=== PATIENT | female | born 1935 | race Caucasian/White ===

== ENCOUNTER 2017-01-16 18:30 | Emergency (ER) | payer MEDICARE ==
[~2017-01-16] VITALS: Ht 157.5 cm; Wt 86.2 kg
[~2017-01-16 18:30] MED LIST: ALBU17AE23; ALPR1T; ALPR1TAB21; ATR20T; CYCL10TA45; FRSM40T; HYDR1TAB PO; HYDROCHLOR; HYDROCODONE 5/500; HYDROXYSUT; KCL10CCR; MNTL10T; MTL2.5T; NF-CYM60C; NF-ESOM40C; NF-LEVTH75; PGLT30T; POTA10TA36; PRD5T; RMP5C; ROPI1TAB; SLMFT1E; TOLTA4; TORS20TA2; TRZ100T
[2017-01-16] MEDS ORDERED: OXYBUTYNIN (18:54)
[2017-01-16] MEDS ORDERED: MED FOR BLADDER (18:54)
[2017-01-16] MEDS ORDERED: MEMA1TAB PO (18:54)
[2017-01-16] MEDS ORDERED: ZOFRAN (18:54)
[2017-01-16] MEDS ORDERED: RT-ALBUTEROL/IPRATROPIUM 3 ML (DUONEB) VIAL INH ONE (19:15)
--- NOTE | 2017-01-16 19:16 | ED Cough/URI ---
General Chief Complaint: Cough/Cold/Flu Symptoms Stated Complaint: PRODUCTIVE COUGH/L EAR PAIN/BILAT EYE DRAINAGE Nursing Triage Note: PT C/O COUGH, HEAD CONGESTION X 2 WEEKS. Source: patient Exam Limitations: no limitations History of Present Illness Time seen by provider: 19:00 Initial Comments 82-year-old female patient presents to the emergency department with complaints of 2 weeks onset cough, chest congestion, head congestion. States now is having green drainage from the bilateral eyes and left ear pain. Timing/Duration: getting worse, other (2 weeks onset) Severity/Quality: productive cough (yellow) Prior Episodes/Possible Cause: no prior episodes Modifying Factors: Worse With Coughing Allergies and Home Medications Allergies Coded Allergies: Acetaminophen (Verified Allergy, Unknown, 10/10/08) Butorphanol (Verified Allergy, Unknown, 10/10/08) Propoxyphene (Verified Allergy, Unknown, 10/10/08) Sulfa (Sulfonamide Antibiotics) (Verified Allergy, Unknown, 10/10/08) Home Medications Albuterol 17 Gm Aerosol, (Reported) Albuterol Sulfate 6.7 Gm Hfa.aer.ad, 2 PUFF IH Q4H PRN for SHORTNESS OF BREATH, #1 Ref 0 Prescribed by: ABEL BARTH on 01/16/172002 Alprazolam 1 Mg Tab.sr.24h, (Reported) Ciprofloxacin HCl 500 Mg Tablet, 500 MG PO BID, #14 Ref 0 Prescribed by: ABEL BARTH on 01/16/172002 Esomeprazole Mag Trihydrate 40 Mg Capsule.dr, (Reported) Furosemide 40 Mg Tab, (Reported) Hydrocodone Bit/Acetaminophen 1 Each Tablet, 1 EACH PO Q4HR PRN, #20 Ref 0 Prescribed by: KLAUDIA VALLEJO DO on 02/14/10 1124 Hydroxychloroquine Sulfate 200 Mg Tab, (Reported) Levothyroxine Sodium 75 Mcg Tab, (Reported) Memantine HCl 1 Each Tab.ds.pk, 1 EACH PO, (Reported) Montelukast Sodium 10 Mg Tab, (Reported) Ofloxacin 5 Ml Drops, 10 DROPS OT DAILY for 7 Days, #1 Ref 0 Prescribed by: ABEL BARTH on 01/16/172002 Potassium Chloride 10 Meq Tab.prt.sr, (Reported) Prednisone 20 Mg Tab, 40 MG PO DAILY, #8 Ref 0 Prescribed by: ABEL BARTH on 01/16/172002 Ramipril 5 Mg Cap, (Reported) Ropinirole Hcl 1 Mg Tablet, (Reported) Salmeterol Xinaf/Fluticasone 1 Diskus Inhp, (Reported) [Med For Bladder] , (Reported) [Oxybutynin] , (Reported) [Zofran] , (Reported) Constitutional: No chills, No fever, malaise EENTM: ear pain, nose congestion, see HPI, throat pain, No ear discharge, No hearing loss Respiratory: cough, No hemoptysis, No orthopnea, phlegm, No short of breath, No stridor, wheezing Cardiovascular: no symptoms reported Gastrointestinal: no symptoms reported Genitourinary: no symptoms reported Skin: no symptoms reported Psychiatric/Neurological: No Symptoms Reported All Other Systems Reviewed Negative Unless Noted: Yes (Negative excepted noted.) Past Ocitqys-Kapclb-Qiaktr Hx Patient Social History Alcohol Use: Denies Use Recreational Drug Use: No Smoking Status: Never a Smoker 2nd Hand Smoke Exposure: Yes Recent Foreign Travel: No Contact w/Someone Who Travel: No Recent Infectious Disease Expo: No Recent Hopitalizations: Yes Immunizations Up To Date Date of Influenza Vaccine: Aug 17, 2016 Surgeries HX Surgeries: Yes (CATHRYN,HYST,NECK SURG.,ROTATOR CUFF,D&C) Respiratory Hx Respiratory Disorders: Yes (OCC.FLUID BUILDUP) Cardiovascular Hx Cardiac Disorders: Yes Cardiac Disorders: Hypertension Reproductive System Hx Reproductive Disorders: No Genitourinary Hx Genitourinary Disorders: No Musculoskeletal Hx Musculoskeletal Disorders: Yes HEENT HX ENT Disorders: No Blood Transfusions Hx Blood Disorders: No Reviewed Nursing Assessment Reviewed/Agree w Nursing PMH: Yes Family Medical History Significant Family History: No Pertinent Family Hx Physical Exam Vital Signs Vital Sign - Last 12Hours 01/16/17 01/16/17 18:44 19:25 Temp 98.2 Pulse 71 Resp 18 B/P (MAP) 138/67 Pulse Ox 94 O2 Delivery Room Air Capillary Refill : Less Than 3 Seconds General Appearance: WD/WN, no apparent distress Eyes: Bilateral Eye EOMI, Bilateral Eye Other (conjunctiva injected bilaterally. No active drainage at the time of exam. Patient reports drainage at home.), Bilateral Eye PERRL HEENT: PERRL/EOMI, TMs normal, pharyngeal erythema, other (left external ear canal is erythematous with mild swelling) Neck: non-tender, full range of motion, supple, normal inspection Respiratory: no respiratory distress, rhonchi (left base), wheezing (left base) , expiration Cardiovascular: regular rate, rhythm, no murmur Gastrointestinal: non tender, soft, No distended Neurologic/Psychiatric: alert, normal mood/affect, oriented x 3 Skin: normal color, warm/dry Progress/Results/Core Measures Results/Orders My Orders Orders - ABEL BARTH PA Chest Pa/Lat (2 View) (01/16/17 19:05) Albuterol/Ipra Inhalation Soln (Duoneb I (01/16/17 19:15) Svn Sm Volume Nebulizer Rt-Rfs (01/16/17 19:05) Rx-Gentamicin Ophth Soln (Rx-Gentamicin (01/16/17 19:52) Levofloxacin Tablet (Levaquin Tablet) (01/16/17 20:00) Medications Given in ED Vital Signs/I&O Vital Sign - Last 12Hours 01/16/17 01/16/17 01/16/17 01/16/17 18:44 18:44 19:25 20:22 Temp 98.2 Pulse 71 75 Resp 18 16 B/P (MAP) 138/67 Pulse Ox 94 94 O2 Delivery Room Air Blood Pressure Mean: 90 Diagnostic Imaging Diagonstic Imaging: Xray Plain Films/CT/US/NM/MRI: chest Comments PA and lateral chest obtained at 7:33 p.m. Heart and mediastinal silhouette are normal in appearance. The lungs are clear. There is no pneumothorax or pleural fluid. IMPRESSION: No acute process in the chest. No change from 10/07/15. Dictated by: Dictated on workstation # [id number] Reviewed: Reviewed by Me (radiology report reviewed by me) Departure Communication Progress Notes Diagnostic findings discussed with the patient. Patient shows improved breath sounds bilaterally following nebulizer treatment. Faint crackles in the lung bases noted bilaterally. Plan for discharge to home. Impression Impression: Primary Impression: Bronchitis Additional Impressions: Conjunctivitis of both eyes Qualified Codes: H10.33 - Unspecified acute conjunctivitis, bilateral Left otitis externa Qualified Codes: H60.392 - Other infective otitis externa, left ear Disposition: 01 HOME, SELF-CARE Condition: Improved Departure-Patient Inst. Decision time for Depature: 19:58 Referrals: MARION SHEA MD (PCP/Family) Primary Care Physician Patient Instructions: Acute Bronchitis, Adult (DC), Conjunctivitis ([place]) ( DC) Add. Discharge Instructions: All discharge instructions reviewed with patient and/or family. Voiced understanding. Medications as instructed. Tylenol Extra Strength over-the- counter as directed for pain. Ibuprofen 800 mg by mouth every 8 hours as needed for pain. Cool humidifier if needed. Continue usual home medications. Follow-up with your primary care physician for recheck as an outpatient. Return to the emergency department for worsened symptoms or any other concerns. Scripts Ofloxacin (Ofloxacin) 5 Ml Drops 10 DROPS OT DAILY for 7 Days, #1 DROPS 0 Refills Prov: ABEL BARTH 01/16/17 Prednisone (Prednisone) 20 Mg Tab 40 MG PO DAILY, #8 TAB 0 Refills Prov: ABEL BARTH 01/16/17 Albuterol Sulfate (Proventil Hfa) 6.7 Gm Hfa.aer.ad 2 PUFF IH Q4H Y for SHORTNESS OF BREATH, #1 EACH 0 Refills Prov: ABEL BARTH 01/16/17 Ciprofloxacin HCl (Ciprofloxacin HCl) 500 Mg Tablet 500 MG PO BID, #14 TAB 0 Refills Prov: ABEL BARTH 01/16/17 ABEL BARTH Jan 16, 2017 19:16
--- NOTE | 2017-01-16 19:29 | Diagnostic Imaging Report ---
INDICATION: Cough x2 weeks PA and lateral chest obtained at 7:33 p.m. Heart and mediastinal silhouette are normal in appearance. The lungs are clear. There is no pneumothorax or pleural fluid. IMPRESSION: No acute process in the chest. No change from 10/07/15. Dictated by: Dictated on workstation # [id number]
[2017-01-16] MEDS ORDERED: RX-GENTAMICIN SULFATE 0.3% OP 5 ML BTL OU STA (19:52)
[2017-01-16] MEDS ORDERED: LEVOFLOXACIN 500 MG TAB (LEVAQUIN) PO ONE (20:00)
[2017-01-16] MEDS ORDERED: OFLO5DRO7 OT (20:03)
[2017-01-16] MEDS ORDERED: PRD20T PO (20:03)
[2017-01-16] MEDS ORDERED: CIPR500T4 PO (20:03)
[2017-01-16] MEDS ORDERED: RT-ALBUINH IH (20:03)
[2017-01-16 20:22] VITALS: BP 124/78
--- OUTSIDE RECORDS SUMMARY | 2017-02-21 05:24 | XMS REPORT | Referral Summary ---
Author Author [facility] Organization [facility] Address Unknown Phone Unavailable Care Team Providers Care Emergency Management Director Name Role Phone Triston Beyer PCP Encounter VC Date(s): 09/19/15 - 09/19/15 [facility] [address], [place] [address] Discharge Disposition: 01-Home or Self Care Attending Physician: Noe Martínez MD Admitting Physician: Noe Martínez MD Vital Signs No data available for this section Problem List Condition Effective Dates Status Health Status Informant Acute Active pain(Confirmed) Asthma(Confirmed) Active patient At risk for activity Active intolerance(Confirme d)1 At risk for Active infection(Confirmed) 2 At risk for unstable Active blood glucose level(Confirmed)3 At risk of pressure Active sore(Confirmed) CHF (congestive Active patient heart failure)(Confirmed) Fibromyalgia(Confirm Active patient ed) GERD Active patient (gastroesophageal reflux disease)(Confirmed) HTN Active patient (hypertension)(Confi rmed) Impaired skin Active integrity(Confirmed) 4 Inflammatory Active polyarthropathy (disorder)(Confirmed ) Morbid Active patient obesity(Confirmed) Self -care Active deficit(Confirmed)5 1Problem added automatically by system based on initiation of At Risk for Activity Intolerance Plan of Care 2Problem added automatically by system based on initiation of At Risk for Infection in Nutrition Plan of Care 3Problem added automatically by system based on initiation of At Risk for Unstable Blood Glucose Plan of Care 4Problem added automatically by system based on initiation of Impaired Skin Integrity Plan of Care 5Problem added automatically by system based on initiation of Self Care Deficit Plan of Care Allergies, Adverse Reactions, Alerts Substance Reaction Severity Status celecoxib rash Active nitroglycerin severe headache and vomiting Active Stadol respir Severe Active sulfamethoxazole rash Active Medications ALPRAZolam 1 mg oral tablet 1 mg, Oral, TID, as needed for anxiety, # 30 tabs, 0 Refill(s) Start Date: 04/25/15 Status: Ordered aspirin 325 mg oral tablet 325 mg 1 tabs, Oral, Daily, # 30 tabs, 0 Refill(s), other reason (Rx) Start Date: 04/25/15 Status: Ordered glucagon recombinant 1 mg injection IntraMuscular, As Indicated, Hypoglycemia/Low Blood Sugar, 0 Refill(s) Start Date: 04/25/15 Status: Ordered levothyroxine 88 mcg (0.088 mg) oral tablet 88 mcg 1 tabs, Oral, Bedtime (once a day), 0 Refill(s) Start Date: 04/25/15 Status: Ordered miconazole 2% topical powder 1 alma, Topical, BID, 0 Refill(s) Start Date: 04/25/15 Status: Ordered MiraLax 17 g 1 packets, Oral, BID, 0 Refill(s) Start Date: 04/25/15 Status: Ordered Namenda XR 28 mg oral capsule, extended release 28 mg 1 caps, Oral, Daily, 0 Refill(s) Start Date: 04/20/15 Status: Ordered NexIUM 40 mg, Oral, Daily, 0 Refill(s) Start Date: 04/20/15 Status: Ordered [place] 10 mg-325 mg oral tablet 1-2 tabs, Oral, q4hr, Pain Moderate (4-6), # 100 tabs, 0 Refill(s) Start Date: 04/25/15 Status: Ordered Onglyza 5 mg, Oral, Daily, 0 Refill(s) Start Date: 04/20/15 Status: Ordered Plaquenil 200 mg, Oral, BID, 0 Refill(s) Start Date: 04/20/15 Status: Ordered ProAir HFA 90 mcg/inh inhalation aerosol 2 puffs, Inhalation, q6hr, as needed for wheezing, 0 Refill(s) Start Date: 04/20/15 Status: Ordered ramipril 5 mg, Oral, Daily, 0 Refill(s) Start Date: 04/20/15 Status: Ordered Senokot S 50 mg-8.6 mg oral tablet 2 tabs, Oral, Bedtime (once a day), 0 Refill(s) Start Date: 04/25/15 Status: Ordered Singulair 10 mg, Oral, qPM, 0 Refill(s) Start Date: 04/20/15 Status: Ordered Symbicort 160 mcg-4.5 mcg/inh inhalation aerosol 2 puffs, Inhalation, BID, Shortness of Breath/Wheezing, 1-2 puffs, 0 Refill(s) Start Date: 04/20/15 Status: Ordered Zoloft 100 mg, Oral, Bedtime (once a day), 0 Refill(s) Start Date: 04/20/15 Status: Ordered Results Hematology Most recent to 1 oldest [Reference Range]: WBC [4.8-10.8 5.6 10*3/uL 10*3/uL] (09/19/15 5:40 PM) RBC [4.00-5.20] 3.83 *LOW* (09/19/15 5:40 PM) Hgb [12.0-16.0 11.1 gm/dL gm/dL] *LOW* (09/19/15 5:40 PM) Hct [37.0-47.0 %] 34.8 % *LOW* (09/19/15 5:40 PM) MCV [82.0-99.0 fL] 90.9 fL (09/19/15 5:40 PM) MCH [27.0-32.0 pg] 29.0 pg (09/19/15 5:40 PM) MCHC [32.0-36.0 31.9 gm/dL gm/dL] *LOW* (09/19/15 5:40 PM) RDW [11.5-14.5 %] 13.9 % (09/19/15 5:40 PM) Platelet [150-400 217 10*3/uL 10*3/uL] (09/19/15 5:40 PM) MPV [9.4-12.4 fL] 10.8 fL (09/19/15 5:40 PM) Immature 0.2 % Granulocytes (09/19/15 5:40 PM) [0.0-1.0 %] Neutrophils [51-75 62 % %] (09/19/15 5:40 PM) Lymphocytes [20-46 21 % %] (09/19/15 5:40 PM) Monocytes [4-11 %] 13 % *HI* (09/19/15 5:40 PM) Eosinophils [0-4 %] 4 % (09/19/15 5:40 PM) Basophils [0-2 %] 1 % (09/19/15 5:40 PM) Neutro Absolute 3.47 10*3 [1.90-7.00 10*3] (09/19/15 5:40 PM) Lymph Absolute 1.18 10*3 [0.80-3.30 10*3] (09/19/15 5:40 PM) [place] Absolute 0.73 10*3 [0.30-1.00 10*3] (09/19/15 5:40 PM) Eos Absolute 0.21 10*3 [0.00-0.50 10*3] (09/19/15 5:40 PM) Baso Absolute 0.03 10*3 [0.00-0.20 10*3] (09/19/15 5:40 PM) Sed Rate [0-23] 65 *HI* (09/19/15 5:40 PM) Chemistry Most recent to 1 oldest [Reference Range]: Calcium Lvl 9.0 mg/dL [8.6-10.0 mg/dL] (09/19/15 5:40 PM) Immunizations No data available for this section Procedures Procedure Date Related Diagnosis Body Site Open Reduction Internal Fixation Ankle 04/22/15 (Right)1 Carpal tunnel release section Cholecystectomy Dilation and curettage Hysterectomy Rotator cuff repair 1auto-populated from documented surgical case Social History Social History Type Response Smoking Status Never smoker Assessment and Plan No data available for this section
--- OUTSIDE RECORDS SUMMARY | 2017-02-21 05:24 | XMS REPORT | Referral Summary ---
Author Organization Unknown Address Unknown Phone Unavailable Care Team Providers Care Strapper Name Role Phone Triston Beyer PCP Encounter VC Date(s): 11/19/14 - 11/19/[address] [phone]- [place] Discharge Disposition: Home or Self Care Attending Physician: Mike Goodman MD Vital Signs No data available for this section Problem List Condition Effective Dates Status Health Status Informant Inflammatory Active polyarthropathy (disorder)(Confirmed ) Allergies, Adverse Reactions, Alerts Substance Reaction Severity Status celecoxib rash Active nitroglycerin severe headache and vomiting Active sulfamethoxazole rash Active Medications No data available for this section Results Chemistry Most recent to 1 oldest [Reference Range]: Creatinine Lvl 0.67 mg/dL [0.44-1.03 mg/dL] (11/19/14 10:57 AM) eGFR [>60] >60 1 (11/19/14 10:57 AM) 1Result Comment: Multiply eGFR results by 1.21 for race. Immunizations No data available for this section Procedures Procedure Date Related Diagnosis Body Site Collection of venous blood by venipuncture 11/19/14 Social History No data available for this section Assessment and Plan No data available for this section
--- OUTSIDE RECORDS SUMMARY | 2017-02-21 05:25 | XMS REPORT | Referral Summary ---
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 Discharge Disposition: 03-[facility] Facility Attending Physician: Noe Martínez MD Admitting Physician: Noe Martínez MD Vital Signs Most recent to 1 oldest [Reference Range]: Temperature Oral 36.7 degC [35.8-37.3 degC] (10/14/15 12:00 PM) Temperature Tympanic 36.3 degC [36.6-38.1 degC] *LOW* (10/07/15 9:21 AM) Temperature Temporal 36.0 degC Artery [36.3-37.8 *LOW* degC] (10/07/15 12:30 PM) Peripheral Pulse 70 bpm Rate [60-100 bpm] (10/12/15 9:53 AM) Heart Rate Monitored 75 bpm [60-100 bpm] (10/14/15 12:00 PM) Respiratory Rate 18 br/min [14-20 br/min] (10/14/15 12:00 PM) Blood Pressure 144/52 mmHg [90-140/60-90 mmHg] *HI* (10/14/15 12:00 PM) Mean Arterial 91 mmHg Pressure, Cuff (10/07/15 12:45 PM) SpO2 91 % (10/14/15 12:00 PM) Problem List Condition Effective Dates Status Health [...] reason (Rx) Start Date: 04/25/15 Status: Ordered Colace 100 mg oral capsule 100 mg 1 caps, Oral, BID, 0 Refill(s) Start Date: 10/14/15 Status: Ordered Heparin Lock Flush 10 units/mL intravenous solution 10 units 1 mL, IV Push, BID, 0 Refill(s) Start Date: 10/14/15 Status: Ordered levothyroxine 88 mcg (0.088 mg) oral tablet 88 mcg 1 tabs, Oral, Bedtime (once a day), 0 Refill(s) Start Date: 04/25/15 Status: Ordered miconazole 2% topical powder 1 alma, Topical, BID, 0 Refill(s) Start Date: 04/25/15 Status: Ordered Milk of Magnesia 2,400 mg 30 mL, Oral, q12hr, Constipation, 0 Refill(s) Start Date: 10/14/15 Status: Ordered Namenda XR 28 mg oral capsule, extended release 28 mg 1 caps, Oral, Daily, 0 Refill(s) Start Date: 04/20/15 Status: Ordered NexIUM 40 mg, Oral, Daily, 0 Refill(s) Start Date: 04/20/15 Status: Ordered Normal Saline Flush 10 mL, IV Push, BID, 0 Refill(s) Start Date: 10/14/15 Status: Ordered Onglyza 5 mg, Oral, Daily, 0 Refill(s) Start Date: 04/20/15 Status: Ordered oxyCODONE-acetaminophen 10 mg-325 mg oral tablet 1-2 tabs, Oral, q4hr, Pain Moderate (4-6), not to exceed 10 tablets/24 hours; give with food to avoid nausea, # 30 tabs, 0 Refill(s) Start Date: 10/14/15 Stop Date: 11/14/15 Status: Ordered ProAir HFA 90 mcg/inh inhalation aerosol 2 puffs, Inhalation, q6hr, as needed for wheezing, 0 Refill(s) Start Date: 04/20/15 Status: Ordered ramipril 5 mg, Oral, Daily, 0 Refill(s) Start Date: 04/20/15 Status: Ordered senna 8.6 mg oral tablet 8.6 mg 1 tabs, Oral, BID, Constipation, 0 Refill(s) Start Date: 10/14/15 Status: Ordered Singulair 10 mg, Oral, qPM, 0 Refill(s) Start Date: 04/20/15 Status: Ordered Symbicort 160 mcg-4.5 mcg/inh inhalation aerosol 2 puffs, Inhalation, BID, Shortness of Breath/Wheezing, 1-2 puffs, 0 Refill(s) Start Date: 04/20/15 Status: Ordered vancomycin 1 g intravenous injection See Instructions, 1.25g IV q12h through 11/18/15, # 1 g, 0 Refill(s), other reason (Rx) Start Date: 10/14/15 Stop Date: 11/18/15 Status: Ordered Xarelto 10 mg oral tablet 10 mg 1 tabs, Oral, Daily, give daily at 9:00 AM for 20 days post hospital discharge for DVT prophylaxis, 0 Refill(s) Start Date: 10/14/15 Status: Ordered Zoloft 100 mg, Oral, Bedtime (once a day), 0 Refill(s) Start Date: 04/20/15 Status: Ordered Results Hematology Most recent to 1 oldest [Reference Range]: WBC [4.8-10.8 4.7 10*3/uL 10*3/uL] *LOW* (10/12/15 7:51 AM) RBC [4.00-5.20] 3.58 *LOW* (10/12/15 7:51 AM) Hgb [12.0-16.0 10.0 gm/dL gm/dL] *LOW* (10/12/15 7:51 AM) Hct [37.0-47.0 %] 31.9 % *LOW* (10/12/15 7:51 AM) MCV [82.0-99.0 fL] 89.1 fL (10/12/15 7:51 AM) MCH [27.0-32.0 pg] 27.9 pg (10/12/15 7:51 AM) MCHC [32.0-36.0 31.3 gm/dL gm/dL] *LOW* (10/12/15 7:51 AM) RDW [11.5-14.5 %] 14.0 % (10/12/15 7:51 AM) Platelet [150-400 232 10*3/uL 10*3/uL] (10/12/15 7:51 AM) MPV [9.4-12.4 fL] 10.3 fL (10/12/15 7:51 AM) Immature 0.2 % Granulocytes (10/10/15 5:35 AM) [0.0-1.0 %] Neutrophils [51-75 57 % %] (10/10/15 5:35 AM) Lymphocytes [20-46 24 % %] (10/10/15 5:35 AM) Monocytes [4-11 %] 13 % *HI* (10/10/15 5:35 AM) Eosinophils [0-4 %] 6 % *HI* (10/10/15 5:35 AM) Basophils [0-2 %] 0 % (10/10/15 5:35 AM) Neutro Absolute 2.75 10*3 [1.90-7.00 10*3] (10/10/15 5:35 AM) Lymph Absolute 1.17 10*3 [0.80-3.30 10*3] (10/10/15 5:35 AM) [place] Absolute 0.62 10*3 [0.30-1.00 10*3] (10/10/15 5:35 AM) Eos Absolute 0.29 10*3 [0.00-0.50 10*3] (10/10/15 5:35 AM) Baso Absolute 0.01 10*3 [0.00-0.20 10*3] (10/10/15 5:35 AM) Nucleated RBC 0.0 /100 WBC Automated [0 /100 (10/10/15 5:35 AM) WBC] Coagulation Most recent to 1 oldest [Reference Range]: INR [0.9-1.2] 1.0 (10/07/15 9:32 AM) Chemistry Most recent to 1 oldest [Reference Range]: Sodium Lvl [136-144 142 mEq/L mEq/L] (10/12/15 7:51 AM) Potassium Lvl 4.0 mEq/L [3.6-5.1 mEq/L] (10/12/15 7:51 AM) Chloride [99-109 104 mEq/L mEq/L] (10/12/15 7:51 AM) CO2 [22-32 mEq/L] 32 mEq/L (10/12/15 7:51 AM) AGAP [3-20] 6 (10/12/15 7:51 AM) BUN [4-20 mg/dL] 8 mg/dL (10/12/15 7:51 AM) Glucose Lvl [70-100 101 mg/dL mg/dL] *HI* (10/12/15 7:51 AM) Creatinine Lvl 0.62 mg/dL [0.44-1.03 mg/dL] (10/12/15 7:51 AM) eGFR [>60] >60 1 (10/12/15 7:51 AM) Calcium Lvl 8.6 mg/dL [8.6-10.0 mg/dL] (10/12/15 7:51 AM) Troponin [<0.06 <0.05 ng/mL ng/mL] (10/13/15 6:43 AM) Blood Glucose, 104 mg/dL Capillary [70-100 *HI* mg/dL] (10/14/15 1:57 PM) 1Result Comment: Multiply eGFR results by 1.21 for race. Therapeutic Drug Monitoring Most recent to 1 oldest [Reference Range]: Vancomycin Tr 9.8 ug/mL 1 [10.0-20.0 ug/mL] *LOW* (10/09/15 3:33 PM) 1Result Comment: Trough vancomycin concentrations of 15-20 mcg/mL are recommended for complicated infections such as bacteremia, osteomyelitis, endocarditis, meningitis, and hospital acquired pneumonia. Urinalysis Most recent to 1 oldest [Reference Range]: UA Color Yellow (10/14/15 9:31 AM) UA Appear Clear (10/14/15 9:31 AM) UA pH [5.0-8.0] 6.0 (10/14/15 9:31 AM) UA Leuk Est Negative [Negative] (10/14/15 9:31 AM) UA Nitrite Negative [Negative] (10/14/15 9:31 AM) UA Protein Negative [Negative] (10/14/15 9:31 AM) UA Glucose Negative [Negative] (10/14/15 9:31 AM) UA Ketones Negative [Negative] (10/14/15 9:31 AM) UA Urobilinogen Negative [<1.0] (10/14/15 9:31 AM) UA Bili [Negative] Negative (10/14/15 9:31 AM) UA Blood [Negative] Negative (10/14/15 9:31 AM) UA Spec Grav 1.005 [1.003-1.030] (10/14/15 9:31 AM) Type Clean Catch (10/14/15 9:31 AM) Microbiology Reports (Most Recent Ten) TEST: Tissue Culture and Smear1 STATUS: Auth (Verified) BODY SITE: SOURCE: Surgical-Tissue COLLECTED DATE/TIME: 10/07/15 11:00 AM Tissue Culture and Smear Staphylococcus, coagulase negative small amount ORGANISM:Staphylococcus coagulase negative TEST: Acid Fast Bacilli Culture and Smear STATUS: Order in Progress BODY SITE: SOURCE: Surgical-Tissue COLLECTED DATE/TIME: 10/07/15 11:00 AM Acid Fast Smear Only No acid fast bacilli seen TEST: Anaerobic Culture2 STATUS: Auth (Verified) BODY SITE: SOURCE: Surgical-Tissue COLLECTED DATE/TIME: 10/07/15 11:00 AM Anaerobic Culture No anaerobes isolated TEST: Fungus Culture & Calcofluor White Stain STATUS: Order in Progress BODY SITE: SOURCE: Surgical-Tissue COLLECTED DATE/TIME: 10/07/15 11:00 AM Fungus Culture Culture in progress TEST: Tissue Culture and Smear3 STATUS: Auth (Verified) BODY SITE: SOURCE: Surgical-Tissue COLLECTED DATE/TIME: 10/07/15 10:45 AM Tissue Culture and Smear Staphylococcus, coagulase negative scant amount ORGANISM:Staphylococcus coagulase negative TEST: Fungus Culture & Calcofluor White Stain STATUS: Order in Progress BODY SITE: SOURCE: Surgical-Tissue COLLECTED DATE/TIME: 10/07/15 10:45 AM Fungus Culture Culture in progress TEST: Anaerobic Culture4 STATUS: Auth (Verified) BODY SITE: SOURCE: Surgical-Tissue COLLECTED DATE/TIME: 10/07/15 10:45 AM Anaerobic Culture No anaerobes isolated TEST: Acid Fast Bacilli Culture and Smear STATUS: Order in Progress BODY SITE: SOURCE: Surgical-Tissue COLLECTED DATE/TIME: 10/07/15 10:45 AM Acid Fast Bacilli Culture and Smear Culture in progress TEST: Wound Culture and Smear STATUS: Auth (Verified) BODY SITE: SOURCE: Surgical-Wound COLLECTED DATE/TIME: 10/07/15 10:30 AM Gram Smear Rare (0-1/OIF) white blood cells Many (10-20/OIF) red blood cells No microorganisms observed TEST: Fungus Culture & Calcofluor White Stain STATUS: Order in Progress BODY SITE: SOURCE: Surgical-Wound COLLECTED DATE/TIME: 10/07/15 10:30 AM Fungus Culture Culture in progress INTERPRETIVE DATA 1Gram stain result called to OR 5 10/07/2015 11:55 2Gram stain result called to OR 5 10/07/2015 11:55 3Result called to VONNIE Espinoza (OR 5) 4Result called to VONNIE Espinoza (OR 5) Immunizations No data available for this section Procedures Procedure Date Related Diagnosis Body Site Insertion of peripherally inserted central 10/09/15 venous catheter (PICC), without subcutaneous port or pump; age 5 years or older.. Removal Hardware Extremity Lower (Right)1 10/07/15 Open Reduction Internal Fixation Ankle 04/22/15 (Right)2 Carpal tunnel release section Cholecystectomy Dilation and curettage Hysterectomy Rotator cuff repair 1auto-populated from documented surgical case 2auto-populated from documented surgical case Social History Social History Type Response Smoking Status Never smoker Assessment and Plan No data available for this section
--- OUTSIDE RECORDS SUMMARY | 2017-02-21 05:25 | XMS REPORT ---
Author Author Brina Jiménez Organization [employer] Address Unknown Phone Unavailable Care Team Providers Care Elevator Repair Mechanic Name Role Phone Brina Jiménez CP Unavailable Allergies, Adverse Reactions, Alerts Substance Reaction Event Type Sulfa rash Drug Allergy Nitroglycerin vomit Drug Allergy Celebrex rash Drug Allergy Problems Problem Type Condition Code Onset Dates Condition Status Assessment Chest pain R07.9 Active Assessment PVC (premature ventricular contraction) I49.3 Active Assessment Type 2 diabetes mellitus without complications E11.9 Active Assessment Essential hypertension I10 Active Assessment Hyperlipidemia, unspecified E78.5 Active Problem Essential hypertension I10 Active Problem Hyperlipidemia, unspecified E78.5 Active Problem Dizziness R42 Active Problem PVC (premature ventricular contraction) I49.3 Active Assessment Dizziness R42 Active Problem Chest pain R07.9 Active Problem Type 2 diabetes mellitus without complications E11.9 Active Medications Medication Code System Code Instructions Start Date End Date Status Dosage Synthroid [facility] [address]-23 75 MCG Orally Once a day 1 tablet on an empty stomach in the morning Onglyza [facility] [address]-47 5 MG Orally Once a day 1 tablet Namenda Titration Pawan [facility] [address]-23 5 (28)-10 (21) MG Orally Once a day 1 tablet ProAir HFA [facility] [address]-61 108 (90 Base) MCG/ACT Inhalation every 4 hrs 2 puffs as needed Potassium Chloride [facility] [address]-99 20 MEQ Orally Once a day/As needed [address] [facility] [address]-12 200 MG Orally Twice a day 1 tablet with food or milk [place] [facility] [address]-51 7.5-325 MG Orally every 6 hrs 1 tablet as needed Aspirin [facility] [address]-36 325 MG Orally Once a day [address] [facility] [address]-23 50 MG Orally Once a day 3 capsule as needed Lasix [facility] [address]-75 40 MG Orally Once a day 1 tablet Oxybutynin Chloride [facility] [address]-73 5 MG Orally Twice a day [address] [facility] [place] [address]-59 1 MG Orally Three times a day 1 tablet as needed Singulair [facility] [address]-69 10 MG Orally Once a day 1 tablet in the evening Pravastatin Sodium [facility] [address]-76 10 MG Orally Once a day [address] [facility] [address]-91 5 MG Orally Once a day 1 capsule Procedures Procedure Coding System Code Date Office Visit, Est Pt., Level 4 CPT-4 02053 May 14, 2016 Vital Signs Date/Time: May 14, 2016 BMI 34.75 Index Weight 190.00 lbs Height 62 in Cardiac Monitoring Heart Rate 73 /min Oximetry 96 % Blood Pressure Diastolic 74 mm Hg Blood Pressure Systolic 128 mm Hg Results No Known Results Summary Purpose [employer] Submission
--- OUTSIDE RECORDS SUMMARY | 2017-02-21 05:25 | XMS REPORT | Referral Summary ---
Author Author [facility] Organization [facility] Address Unknown Phone Unavailable Care Team Providers Care Mixer Helper Name Role Phone Triston Beyer PCP Encounter VC Date(s): 04/20/15 - 04/25/15 [facility] [address] [place] [address] Discharge Diagnosis: Inflammatory polyarthropathy Discharge Diagnosis: Morbid obesity Discharge Diagnosis: Asthma Discharge Diagnosis: Fibromyalgia Discharge Diagnosis: GERD (gastroesophageal reflux disease) Final: CLOSED FRACTURE OF SHAFT OF FIBULA WITH TIBIA Final: Body Mass Index 40.0-44.9, Adult Final: CONGESTIVE HEART FAILURE, UNSPECIFIED Final: PERSONAL HISTORY OF NONCOMPLIANCE WITH MEDICAL TREATMENT, PRESENTING HAZARDS TO HEALTH Final: Diabetes mellitus without mention of complication, type II or unspecified type, not stated as uncontrolled Final: UNSPECIFIED ESSENTIAL HYPERTENSION Final: Myalgia and myositis, unspecified Final: Other chronic pain Final: ESOPHAGEAL REFLUX Final: MORBID OBESITY Final: Unspecified episodic mood disorder Final: RHEUMATOID ARTHRITIS Final: Panic disorder without agoraphobia Final: Asthma, unspecified Final: CONTUSION OF FACE, SCALP, AND NECK EXCEPT EYE(S) Discharge Disposition: -[facility] Attending Physician: Triston Beyer MD Admitting Physician: Idalmis Resendez MD Vital Signs Most recent to 1 oldest [Reference Range]: Temperature Oral 37.0 degC [35.8-37.3 degC] (04/25/15 12:00 PM) Temperature Skin 36.5 degC [36-37 degC] (04/22/15 10:45 AM) Peripheral Pulse 70 bpm Rate [60-100 bpm] (04/25/15 12:00 PM) Heart Rate Monitored 70 bpm [60-100 bpm] (04/25/15 8:28 AM) Respiratory Rate 16 br/min [14-20 br/min] (04/25/15 12:00 PM) Blood Pressure 129/70 mmHg [90-140/60-90 mmHg] (04/25/15 12:00 PM) Mean Arterial 105 mmHg Pressure, Cuff (04/22/15 11:00 AM) SpO2 95 % (04/25/15 12:00 PM) Problem List Condition Effective Dates [...] to 1 oldest [Reference Range]: WBC [4.8-10.8 6.6 10*3/uL 10*3/uL] (04/25/15 6:19 AM) RBC [4.00-5.20 3.87 10*6/uL 10*6/uL] *LOW* (04/25/15 6:19 AM) Hgb [12.0-16.0 10.8 gm/dL gm/dL] *LOW* (04/25/15 6:19 AM) Hct [37.0-47.0 %] 34.8 % *LOW* (04/25/15 6:19 AM) MCV [82.0-99.0 fL] 89.9 fL (04/25/15 6:19 AM) MCH [27.0-32.0 pg] 27.9 pg (04/25/15 6:19 AM) MCHC [32.0-36.0 31.0 gm/dL gm/dL] *LOW* (04/25/15 6:19 AM) RDW [11.5-14.5 %] 14.4 % (04/25/15 6:19 AM) Platelet [150-400 177 10*3/uL 10*3/uL] (04/25/15 6:19 AM) MPV [9.4-12.4 fL] 10.4 fL (04/25/15 6:19 AM) Immature 0.2 % Granulocytes (04/25/15 6:19 AM) [0.0-1.0 %] Neutrophils [51-75 69 % %] (04/25/15 6:19 AM) Lymphocytes [20-46 15 % %] *LOW* (04/25/15 6:19 AM) Monocytes [4-11 %] 11 % (04/25/15 6:19 AM) Eosinophils [0-4 %] 4 % (04/25/15 6:19 AM) Basophils [0-2 %] 0 % (04/25/15 6:19 AM) Neutro Absolute 4.51 10*3 [1.90-7.00 10*3] (04/25/15 6:19 AM) Lymph Absolute 1.01 10*3 [0.80-3.30 10*3] (04/25/15 6:19 AM) [place] Absolute 0.72 10*3 [0.30-1.00 10*3] (04/25/15:19 AM) Eos Absolute 0.29 10*3 [0.00-0.50 10*3] (04/25/15 6:19 AM) Baso Absolute 0.01 10*3 [0.00-0.20 10*3] (04/25/15:19 AM) Nucleated RBC 0.0 /100 WBC Automated [0 /100 (04/25/15:19 AM) WBC] Coagulation Most recent to 1 oldest [Reference Range]: INR [0.9-1.2] 0.9 (04/20/15 7:27 PM) PTT [25.0-35.0] 23.0 *LOW* (04/20/15 7:27 PM) Chemistry Most recent to 1 oldest [Reference Range]: Sodium Lvl [136-144 136 mEq/L mEq/L] (04/25/15:19 AM) Potassium Lvl 4.3 mEq/L [3.6-5.1 mEq/L] (04/25/15 6:19 AM) Chloride [99-109 98 mEq/L mEq/L] *LOW* (04/25/15: AM) CO2 [22-32 mEq/L] 31 mEq/L (04/25/15 6:19 AM) AGAP [3-20] 7 (04/25/15 6:19 AM) BUN [4-20 mg/dL] 18 mg/dL (04/25/15 6:19 AM) Glucose Lvl [70-100 140 mg/dL mg/dL] *HI* (04/25/15 6:19 AM) Creatinine Lvl 0.58 mg/dL [0.44-1.03 mg/dL] (04/25/15 6:19 AM) eGFR [>60] >60 1 (04/25/15 6:19 AM) Calcium Lvl 9.1 mg/dL [8.6-10.0 mg/dL] (04/25/15 6:19 AM) Albumin Lvl [3.5-4.8 3.6 gm/dL gm/dL] (04/20/15 7:27 PM) Total Protein 6.3 gm/dL [6.1-7.9 gm/dL] (04/20/15 7:27 PM) Globulin [1.9-4.3 2.7 gm/dL gm/dL] (04/20/15 7:27 PM) ALT [14-54 U/L] 13 U/L *LOW* (04/20/15 7:27 PM) AST [15-41 U/L] 24 U/L (04/20/15 7:27 PM) Alk Phos [26-104 87 U/L U/L] (04/20/15 7:27 PM) Bili Total [0.2-1.2 0.6 mg/dL 2 mg/dL] (04/20/15 7:27 PM) Magnesium Lvl 2.3 mg/dL [1.8-2.5 mg/dL] (04/20/15 7:27 PM) Troponin [<0.06 <0.05 ng/mL ng/mL] (04/20/15 7:27 PM) Blood Glucose, 129 mg/dL Capillary [70-100 *HI* mg/dL] (04/25/15 11:37 AM) 1Result Comment: Multiply eGFR results by 1.21 for race. 2Result Comment: Naproxen, specifically the metabolite O-desmethylnaproxen, may cause spurious elevation in Total Bilirubin levels. Immunizations No data available for this section Procedures Procedure Date Related Diagnosis Body Site Removal Hardware Extremity Lower (Right)1 10/07/15 Open Reduction Internal Fixation Ankle 04/22/15 (Right)2 Carpal tunnel release section Cholecystectomy Dilation and curettage Hysterectomy Rotator cuff repair 1auto-populated from documented surgical case 2auto-populated from documented surgical case Social History Social History Type Response Smoking Status Never smoker Assessment and Plan No data available for this section
--- OUTSIDE RECORDS SUMMARY | 2017-02-21 05:25 | XMS REPORT | Referral Summary ---
Author Author [facility] Organization [facility] Address Unknown Phone Unavailable Care Team Providers Care Impregnating Tank Operator Name Role Phone Triston Beyer PCP Encounter VC Date(s): 09/06/15 - 09/06/15 [facility] [address] [place] [address], [place] [address] Discharge Disposition: 01-Home or Self Care Attending Physician: Triston Beyer MD Vital Signs No data available for [...] 0 Refill(s) Start Date: 04/20/15 Status: Ordered Coello 10 mg-325 mg oral tablet 1-2 tabs, [...] Refill(s) Start Date: 04/20/15 Status: Ordered Results No data available for this section Immunizations No data available for this section [...]
--- OUTSIDE RECORDS SUMMARY | 2017-02-21 05:25 | XMS REPORT | Referral Summary ---
Author Author [facility] Organization [facility] Address Unknown Phone Unavailable Care Team Providers Care Launderer Hand Name Role Phone Triston Beyer PCP Encounter VC Date(s): 12/01/16 - 12/01/16 [facility] [address], [place] [address] Discharge Disposition: 01-Home or Self Care Attending Physician: Waldemar Frost MD Vital Signs Most recent to 1 oldest [Reference Range]: Temperature Temporal 36.4 degC Artery [36.3-37.8 (12/01/16 9:00 AM) degC] Peripheral Pulse 61 bpm Rate [60-100 bpm] (12/01/16 6:30 AM) Heart Rate Monitored 61 bpm [60-100 bpm] (12/01/16 9:00 AM) Respiratory Rate 18 br/min [14-20 br/min] (12/01/16 9:00 AM) Blood Pressure 131/58 mmHg [90-140/60-90 mmHg] (12/01/16 9:00 AM) Mean Arterial 97 mmHg Pressure, Cuff (12/01/16 9:00 AM) SpO2 98 % (12/01/16 9:00 AM) Remote Telemetry Ongoing (12/01/16 8:40 AM) Problem List Condition Effective Dates Status Health [...] 0 Refill(s) Start Date: 10/14/15 Status: Ordered Lasix 40 mg oral tablet 40 mg 1 tabs, Oral, Daily, 0 Refill(s) Start Date: 12/01/16 Status: Ordered levothyroxine 88 mcg (0.088 mg) oral tablet 88 mcg 1 tabs, Oral, Bedtime (once a day), 0 Refill(s) Start Date: 04/25/15 Status: Ordered Namenda XR 28 mg oral capsule, extended release 28 mg 1 caps, Oral, Daily, 0 Refill(s) Start Date: 04/20/15 Status: Ordered [place] 7.5 mg-325 mg oral tablet 1 tabs, Oral, q4hr, as needed for pain, 0 Refill(s) Start Date: 12/01/16 Status: Ordered oxybutynin 5 mg oral tablet 5 mg 1 tabs, Oral, Daily, 0 Refill(s) Start Date: 12/01/16 Status: Ordered Plaquenil 200 mg, Oral, Daily, 0 Refill(s) Start Date: 12/01/16 Status: Ordered ProAir HFA 90 mcg/inh inhalation aerosol 2 puffs, Inhalation, q6hr, as needed for wheezing, 0 Refill(s) Start Date: 04/20/15 Status: Ordered ramipril 5 mg, Oral, Daily, 0 Refill(s) Start Date: 04/20/15 Status: Ordered Requip 3 mg oral tablet 3 mg 1 tabs, Oral, Daily, 0 Refill(s) Start Date: 12/01/16 Status: Ordered Symbicort 160 mcg-4.5 mcg/inh inhalation aerosol 2 puffs, Inhalation, BID, Shortness of Breath/Wheezing, 1-2 puffs, 0 Refill(s) Start Date: 04/20/15 Status: Ordered Zoloft 100 mg, Oral, Bedtime (once a day), 0 Refill(s) Start Date: 04/20/15 Status: Ordered Results Hematology Most recent to 1 oldest [Reference Range]: WBC [4.8-10.8 5.9 10*3/uL 10*3/uL] (12/01/16 6:22 AM) RBC [4.00-5.20] 4.25 (12/01/16 6:22 AM) Hgb [12.0-16.0 12.0 gm/dL gm/dL] (12/01/16 6:22 AM) Hct [37.0-47.0 %] 37.8 % (12/01/16 6:22 AM) MCV [82.0-99.0 fL] 88.9 fL (12/01/16 6:22 AM) MCH [27.0-32.0 pg] 28.2 pg (12/01/16 6:22 AM) MCHC [32.0-36.0 31.7 gm/dL gm/dL] *LOW* (12/01/16 6:22 AM) RDW [11.5-14.5 %] 14.4 % (12/01/16 6:22 AM) Platelet [150-400 179 10*3/uL 10*3/uL] (12/01/16 6:22 AM) MPV [9.4-12.4 fL] 10.8 fL (12/01/16 6:22 AM) Chemistry Most recent to 1 oldest [Reference Range]: Sodium Lvl [136-144 143 mEq/L mEq/L] (12/01/16 6:22 AM) Potassium Lvl 3.9 mEq/L [3.6-5.1 mEq/L] (12/01/16 6:22 AM) Chloride [99-109 107 mEq/L mEq/L] (12/01/16 6:22 AM) CO2 [22-32 mEq/L] 29 mEq/L (12/01/16 6:22 AM) AGAP [3-20] 7 (12/01/16 6:22 AM) BUN [4-20 mg/dL] 18 mg/dL (12/01/16 6:22 AM) Glucose Lvl [70-100 101 mg/dL mg/dL] *HI* (12/01/16 6:22 AM) Creatinine Lvl 0.79 mg/dL [0.44-1.03 mg/dL] (12/01/16 6:22 AM) eGFR [>60] >60 1 (12/01/16 6:22 AM) Calcium Lvl 9.2 mg/dL [8.6-10.0 mg/dL] (12/01/16 6:22 AM) Blood Glucose, 94 mg/dL Capillary [70-100 (12/01/16 6:25 AM) mg/dL] 1Result Comment: Multiply eGFR results by 1.21 for race. Immunizations No data available for this section Procedures Procedure Date Related Diagnosis Body Site Esophagogastroduodenoscopy Balloon 12/01/16 Dilatation1 Procedure with Anesthesia2 12/01/16 Removal Hardware Extremity Lower (Right)3 10/07/15 Open Reduction Internal Fixation Ankle 04/22/15 (Right)4 Carpal tunnel release section Cholecystectomy Dilation and curettage Hysterectomy Rotator cuff repair 1auto-populated from documented surgical case 2auto-populated from documented surgical case 3auto-populated from documented surgical case 4auto-populated from documented surgical case Social History Social History Type Response Smoking Status Never smoker Assessment and Plan No data available for this section
--- OUTSIDE RECORDS SUMMARY | 2017-02-21 05:26 | XMS REPORT | Referral Summary ---
Author Author [facility] Organization [facility] Address Unknown Phone Unavailable Care Team Providers Care Slubber Hand Name Role Phone Triston Beyer PCP Encounter VC Date(s): 07/22/15 - 07/22/15 [facility] [address] [place] [address]- Discharge Diagnosis: Cellulitis of leg, right Final: Cellulitis of right lower limb Final: Pain in right leg Discharge Disposition: 01-Home or Self Care Attending Physician: Rayo Tenorio MD Admitting Physician: Rayo Tenorio MD Vital Signs Most recent to 1 oldest [Reference Range]: Temperature Oral 36.9 degC [35.8-37.3 degC] (07/22/15 2:22 AM) Peripheral Pulse 64 bpm Rate [60-100 bpm] (07/22/15 2:22 AM) Respiratory Rate 20 br/min [14-20 br/min] (07/22/15 2:22 AM) Systolic Blood 140 mmHg Pressure [90-140 (07/22/15 2:22 AM) mmHg] Diastolic Blood 69 mmHg Pressure [60-90 (07/22/15 2:22 AM) mmHg] SpO2 99 % (07/22/15 2:22 AM) Problem List Condition Effective Dates Status [...] 0 Refill(s) Start Date: 04/20/15 Status: Ordered Xarelto 10 mg oral tablet [...]
--- OUTSIDE RECORDS SUMMARY | 2017-02-21 05:26 | XMS REPORT | Continuity of Care Document ---
Author Author [facility] Organization [facility] Address Unknown Phone Unavailable Allergies Active Description Code Type Severity Reaction Onset Reported/Identified Relationship to Patient Clinical Status Yes acetaminophen acetaminophen Drug Allergy Unknown RASH 06/07/2012 Yes butorphanol tartrate butorphanol tartrate Drug Allergy Unknown STOPPED BREATHING 06/07/2012 Yes metolazone metolazone Drug Allergy Unknown DIABETES 06/07/2012 Yes nitroglycerin nitroglycerin Drug Allergy Unknown HEADACHE, VOMITING 06/07/2012 Yes propoxyphene napsylate propoxyphene napsylate Drug Allergy Unknown RASH 06/07/2012 Yes Sulfa (Sulfonamide Antibiotics) Sulfa (Sulfonamide Antibiotics) Drug Allergy Unknown RASH Yes No Allergy Information Drug Allergy 09/06/2012 Yes No Allergy Information Drug Allergy N/A N/A 09/06/2012 Yes No Known Drug Allergies Drug Allergy N/A N/A 11/04/2013 Medications Medication Packaging Start Date Stop Date Route Dosage Sig Colace 100 mg capsule Capsule 11/18/2015 100 mg take 1 (one) Capsule by Oral route two times per day azelastine 0.05 % eye drops Unspecified 11/18/2015 0.05 % 1 ( one) daily minocycline 100 mg tablet Tablet 11/18/2015 05/18/2016 100 mg take 1 (one) Tablet by Oral route two times per day for 30 days Benadryl 25 mg capsule Capsule 11/18/2015 25 mg take 1 (one) Capsule by Oral route daily as needed Namenda XR 28 mg capsule sprinkle,extended release Capsule 11/18/2015 28 mg take 1 (one) by Oral route daily levothyroxine 88 mcg tablet Tablet 11/18/2015 88 mcg 1 (one) by Oral route daily senna 8.6 mg tablet Tablet 11/18/2015 8.6 mg take 1 (one) Tablet by Oral route two times per day oxyCODONE-acetaminophen 10 mg-325 mg tablet Tablet 11/18/2015 10-325 mg take 1 (one) Tablet by Oral route every 4 to 6 hours as needed Symbicort 160 mcg-4.5 mcg/actuation HFA aerosol inhaler Inhalation 11/18/2015 160-4.5 mcg/actuation 1 (one) daily hydrALAZINE 25 mg tablet 11/18/2015 11/18/2015 25 mg take 1 ( one) Tablet by Oral route daily Zofran 4 mg tablet 11/18/2015 11/18/2015 4 mg take 1 (one) Tablet by Oral route daily aspirin 325 mg tablet 11/18/2015 11/18/2015 325 mg take 1 ( one) Tablet by Oral route daily omeprazole 40 mg capsule,delayed release Capsule 11/18/2015 40 mg take 1 (one) by Oral route with meals lisinopril 5 mg tablet Tablet 11/18/2015 5 mg take 1 (one) Tablet by Oral route daily montelukast 10 mg tablet Tablet 11/18/2015 10 mg take 1 (one ) Tablet by Oral route every evening Zoloft 100 mg tablet 11/18/2015 11/18/2015 100 mg take 1 (one ) Tablet by Oral route daily Xanax 1 mg tablet 11/18/2015 11/18/2015 1 mg take 1 (one) Tablet by Oral route daily Onglyza 5 mg tablet Tablet 11/18/2015 5 mg take 1 (one) Tablet by Oral route daily oxybutynin chloride 5 mg tablet 05/18/2016 05/18/2016 5 mg take 1 (one) Tablet by Oral route daily Problems Date Dx Coded Attending Type Code Diagnosis Diagnosed By 09/14/2012 Final 719.42 JOINT PAIN-UPPER ARM 11/12/2012 Noe Santoyo MD Final 250.00 DM2/NOS UNCOMP NSU 11/12/2012 Noe Santoyo MD Final 292.0 DRUG WITHDRAWAL 11/12/2012 Noe Santoyo MD Final 304.60 DRUG DEP NEC-UNSPEC 11/12/2012 Noe Santoyo MD Final 401.9 HYPERTENSION NOS 11/12/2012 Noe Santoyo MD Final 729.1 MYALGIA MYOSITIS NOS 11/12/2012 Noe Santoyo MD 784.0 HEADACHE 11/12/2012 Noe Santoyo MD Admitting 796.2 ELEVATE BP W/O HTN 11/18/2012 Triston Beyer MD Final 298.9 PSYCHOSIS NOS 11/18/2012 Tritson Beyer MD Final 401.9 HYPERTENSION NOS 11/18/2012 Triston Beyer MD Final 785.9 CV SYSTEM SYMPTOMS NEC 11/18/2012 Triston Beyer MD Admitting 298.9 PSYCHOSIS NOS 11/18/2012 Triston Beyer MD Admitting 401.9 HYPERTENSION NOS 11/18/2012 Triston Beyer MD Admitting 785.9 CV SYSTEM SYMPTOMS NEC 04/06/2013 Zulay Ferris MD Final 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 04/06/2013 Zulay Ferris MD Final 793.0 NONSP FIND-SKULL HEAD 04/06/2013 Zulay Ferris MD Admitting 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 07/18/2013 Other Doctor, [facility] Final 799.9 UNKN CAUSE MORB/MORT NEC 07/18/2013 Ren Still MD Final 250.00 DM2/NOS UNCOMP NSU 07/18/2013 Ren Still MD Final 401.9 HYPERTENSION NOS 07/18/2013 Ren Still MD 784.0 HEADACHE 07/18/2013 Ren Still MD Final 786.50 CHEST PAIN NOS 07/18/2013 Ren Still MD Final 802.0 CLOSED NASAL BONE FX 07/18/2013 Ren Still MD Final 882.0 OPEN WOUND HAND 07/18/2013 Ren Still MD Admitting 959.09 FACE NECK INJURY 07/18/2013 Ren Still MD Final 959.11 CHEST WALL INJURY NEC 07/18/2013 Ren Still MD External E849.0 HOME ACCIDENTS 07/18/2013 Ren Still MD External E885.9 FALL FROM TRIPPING NEC 11/04/2013 Cole Armendariz MD Final 250.00 DM2/NOS UNCOMP NSU 11/04/2013 Cole Armendariz MD Final 401.9 HYPERTENSION NOS 11/04/2013 Cole Armendariz MD Final 465.9 ACUTE URI NOS 11/04/2013 Cole Armendariz MD Admitting 786.2 COUGH 11/08/2013 Triston Beyer MD Final 416.8 CHR PULMON HEART DIS NEC 11/08/2013 Triston Beyer MD Final 799.02 HYPOXEMIA 12/22/2013 Triston Beyer MD Final 416.8 CHR PULMON HEART DIS NEC 12/22/2013 Triston Beyer MD Final 716.97 ARTHROPATHY NOS-ANKLE 12/22/2013 Triston Beyer MD Final 726.73 CALCANEAL SPUR 12/22/2013 Triston Beyer MD Final 727.9 SYNOV/TEND/BURSA DIS NOS 12/22/2013 Triston Beyer MD 729.5 PAIN IN LIMB 12/22/2013 Triston Beyer MD Final 733.90 DISORDER BONE CART NOS 12/22/2013 Triston Beyer MD 799.02 HYPOXEMIA 03/09/2014 Final 716.97 ARTHROPATHY NOS-ANKLE 03/09/2014 Admitting 729.5 PAIN IN LIMB 03/09/2014 Final 825.25 CLSD FX METATARSAL BONE 03/09/2014 External E001.1 ACTIV-RUNNING 03/09/2014 External E917.7 STRUCK BY FURN W FALL 01/13/2016 DIVYA GOODE MD E11.9 Type 2 diabetes mellitus without complications DIVYA GOODE MD 01/13/2016 DIVYA GOODE MD T84.622D Infection and inflammatory reaction due to internal fixation device of right tibia, subsequent encounter DIVYA GOODE MD 01/13/2016 DIVYA GOODE MD Z79.2 [facility] (current) use of antibiotics DIVYA GOODE MD 03/02/2016 DIVYA GOODE MD L81.8 Other specified disorders of pigmentation DIVYA GOODE MD 03/02/2016 DIVYA GOODE MD T36.4X5S Adverse effect of tetracyclines, sequela DIVYA GOODE MD 03/02/2016 DIVYA GOODE MD T84.622D Infection and inflammatory reaction due to internal fixation device of right tibia, subsequent encounter DIVYA GOODE MD 03/02/2016 DIVYA GOODE MD 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 DIVYA GOODE MD 05/28/2016 DIVYA GOODE MD L81.8 Other specified disorders of pigmentation DIVYA GOODE MD 05/28/2016 DIVYA GOODE MD L98.8 Other specified disorders of the skin and subcutaneous tissue DIVYA GOODE MD 05/28/2016 DIVYA GOODE MD T36.4X5S Adverse effect of tetracyclines, DIVYA Sorto MD 05/28/2016 DIVYA GOODE MD T84.622S Infection and inflammatory reaction due to internal fixation device of right tibia, DIVYA Sorto MD 05/28/2016 DIVYA GOODE MD Z09 Encounter for follow-up examination after completed treatment for conditions other than malignant neoplasm DIVYA GOODE MD Procedures Code [place] [address] Office or other outpatient visit for the evaluation and management of an established patient, which DIVYA GOODE MD 01/16/2016 [facility] Office or other outpatient visit for the evaluation and management of an established patient, which DIVYA GOODE MD 01/28/2016 [facility] Office or other outpatient visit for the evaluation and management of an established patient, which DIVYA GOODE MD 03/03/2016 [facility] Office or other outpatient visit for the evaluation and management of an established patient, which DIVYA GOODE MD 03/03/2016 [facility] Office or other outpatient visit for the evaluation and management of an established patient, which DIVYA GOODE MD 03/17/2016 [facility] Office or other outpatient visit for the evaluation and management of an established patient, which DIVYA GOODE MD 03/25/2016 [facility] Office or other outpatient visit for the evaluation and management of an established patient, which DIVYA GOODE MD 05/28/2016 [facility] Office or other outpatient visit for the evaluation and management of an established patient, which DIVYA GOODE MD 06/24/2016 Results Test Result Range COMPREHENSIVE METABOLIC PANEL - 12/31/15 13:21 Albumin, Serum 3.5 g/dL 3.6-5.1 ALP, Serum 125 U/L 33-130 ALT (SGPT), Serum 15 U/L 6-29 AST (SGOT), Serum 22 U/L 10-35 Bilirubin,Tot,Serum 0.4 mg/dL 0.2-1.2 BUN 29 mg/dL 7-25 Calcium, Serum 9.4 mg/dL 8.6-10.4 Creatinine, Serum 0.59 mg/dL 0.60-0.93 Glucose, Serum 89 mg/dL 65-99 Potassium (K), Serum 3.7 mmol/L 3.5-5.3 Protein, Total Serum 6.4 g/dL 6.1-8.1 eGFR NON-AFR. BOTSWANAN 88 mL/min/1.73m2 > OR=60 eGFR 102 mL/min/1.73m2 > OR=60 BUN/CREATININE RATIO 49 (calc) 6-22 SODIUM 142 mmol/L 135-146 CHLORIDE 104 mmol/L 98-110 CARBON DIOXIDE 30 mmol/L 19-30 GLOBULIN 2.9 g/dL (calc) 1.9-3.7 ALBUMIN/GLOBULIN RATIO 1.2 (calc) 1.0- 2.5 CBC (INCLUDES DIFF/PLT) WITH SMEAR REVIEW - 12/31/15 13:21 ABSOLUTE NEUTROPHILS 4600 cells/uL 1500- 7800 Misc. Result, see notes for description ADEQUATE cells/uL NORMAL ABSOLUTE MONOCYTES 865 cells/uL 200-950 ABSOLUTE EOSINOPHILS 198 cells/uL 15-500 ABSOLUTE BASOPHILS 66 cells/uL 0-200 NEUTROPHILS 69.7 % NRG LYMPHOCYTES 13.2 % NRG MONOCYTES 13.1 % NRG EOSINOPHILS 3.0 % NRG BASOPHILS 1.0 % NRG WHITE BLOOD CELL COUNT 6.6 Thousand/uL 3.8-10.8 RED BLOOD CELL COUNT 4.11 Million/uL 3.80 -5.10 HEMOGLOBIN 11.4 g/dL 11.7-15.5 HEMATOCRIT 35.1 % 35.0-45.0 MCV 85.4 fL 80.0-100.0 MCH 27.6 pg 27.0-33.0 MCHC 32.4 g/dL 32.0-36.0 RDW 16.8 % 11.0-15.0 PLATELET COUNT 203 Thousand/uL 140-400 MPV 10.4 fL 7.5-11.5 C-REACTIVE PROTEIN - 12/31/15 13:21 CRP, Qn 0.16 mg/dL <0.80 SED RATE BY MODIFIED WESTERGREN - 12/31/15 13:21 Sedimentation Rate,W 14 mm/h < OR=30 COMPREHENSIVE METABOLIC PANEL - 02/18/16 04:46 Albumin, Serum 3.5 g/dL 3.6-5.1 ALP, Serum 111 U/L 33-130 ALT (SGPT), Serum 10 U/L 6-29 AST (SGOT), Serum 18 U/L 10-35 Bilirubin,Tot,Serum 0.4 mg/dL 0.2-1.2 BUN 31 mg/dL 7-25 Calcium, Serum 9.5 mg/dL 8.6-10.4 Creatinine, Serum 0.76 mg/dL 0.60-0.93 Glucose, Serum 88 mg/dL 65-99 Potassium (K), Serum 5.0 mmol/L 3.5-5.3 Protein, Total Serum 6.0 g/dL 6.1-8.1 eGFR NON-AFR. BOTSWANAN 75 mL/min/1.73m2 > OR=60 eGFR 86 mL/min/1.73m2 > OR=60 BUN/CREATININE RATIO 41 (calc) 6-22 SODIUM 141 mmol/L 135-146 CHLORIDE 105 mmol/L 98-110 CARBON DIOXIDE 29 mmol/L 19-30 GLOBULIN 2.5 g/dL (calc) 1.9-3.7 ALBUMIN/GLOBULIN RATIO 1.4 (calc) 1.0- 2.5 CBC (INCLUDES DIFF/PLT) WITH SMEAR REVIEW - 02/18/16 04:46 ABSOLUTE NEUTROPHILS 3730 cells/uL 1500- 7800 Misc. Result, see notes for description ... cells/uL NRG ABSOLUTE MONOCYTES 428 cells/uL 200-950 ABSOLUTE EOSINOPHILS 611 cells/uL 15-500 ABSOLUTE BASOPHILS 0 cells/uL 0-200 NEUTROPHILS 59.2 % NRG LYMPHOCYTES 24.3 % NRG MONOCYTES 6.8 % NRG EOSINOPHILS 9.7 % NRG BASOPHILS 0 % NRG WHITE BLOOD CELL COUNT 6.3 Thousand/uL 3.8-10.8 RED BLOOD CELL COUNT 4.19 Million/uL 3.80 -5.10 HEMOGLOBIN 11.8 g/dL 11.7-15.5 HEMATOCRIT 36.3 % 35.0-45.0 MCV 86.6 fL 80.0-100.0 MCH 28.1 pg 27.0-33.0 MCHC 32.5 g/dL 32.0-36.0 RDW 18.1 % 11.0-15.0 PLATELET COUNT 180 Thousand/uL 140-400 MPV 9.8 fL 7.5-11.5 C-REACTIVE PROTEIN - 02/18/16 04:46 CRP, Qn 0.55 mg/dL <0.80 SED RATE BY MODIFIED WESTERGREN - 02/18/16 04:46 Sedimentation Rate,W 9 mm/h < OR=30 Encounters ACCT No. Visit Date/Time Discharge Status Pt. Type Provider Facility Loc./Unit Complaint [id number] 12/22/2013 10:15:00 2013 23:59:59 CLS Outpatient Triston Beyer MD [facility] on [facility] [id number] 11/08/2013 11:12:00 2013 23:59:59 CLS Outpatient Triston Beyer MD [facility] on [facility] [id number] 11/04/2013 16:17:00 2013 17:34:00 DIS Emergency Cole Armendariz MD [facility] on [facility][1] TERM [id number] 07/18/2013 16:30:00 2012 17:42:00 DIS Emergency Ren Still MD [facility] on [facility][1] TERM [id number] 07/18/2013 15:55:00 2012 15:59:00 DIS Emergency Other Doctor, [facility] on [facility] [id number] 04/06/2013 12:45:00 2012 23:59:59 CLS Outpatient Zulay Ferris MD [facility] on [facility] [id number] 11/18/2012 15:21:00 2012 23:59:59 CLS Outpatient Triston Beyer MD [facility] on [facility] [id number] 11/12/2012 06:21:00 2012 08:12:00 DIS Emergency Noe Santoyo MD [facility] on [facility] [id number] 09/14/2012 14:18:00 2011 23:59:59 CLS Outpatient [id number] 09/06/2012 14:14:00 2011 16:34:00 DIS Emergency Ren Still MD [facility] on [facility] [id number] 03/09/2014 12:28:00 Document Registration
--- OUTSIDE RECORDS SUMMARY | 2017-02-21 05:26 | XMS REPORT | Referral Summary ---
Author Author [facility] Organization [facility] Address Unknown Phone Unavailable Care Team Providers Care Change Director Name Role Phone Triston Beyer PCP Encounter VC Date(s): 09/28/15 - 09/28/15 [facility] [address] [place] [address] Discharge Diagnosis: Right ankle pain Discharge Diagnosis: Chronic pain in right foot Discharge Disposition: 01-Home or Self Care Attending Physician: Omar He MD Admitting Physician: Omar He MD Vital Signs Most recent to 1 oldest [Reference Range]: Temperature Oral 36.7 degC [35.8-37.3 degC] (09/28/15 12:06 PM) Peripheral Pulse 88 bpm Rate [60-100 bpm] (09/28/15 2:02 PM) Respiratory Rate 20 br/min [14-20 br/min] (09/28/15 2:02 PM) Blood Pressure 112/68 mmHg [90-140/60-90 mmHg] (09/28/15 2:02 PM) SpO2 98 % (09/28/15 2:02 PM) Problem List Condition Effective Dates Status [...] 0 Refill(s) Start Date: 04/20/15 Status: Ordered [place] 10 mg-325 mg oral tablet 1-2 tabs, Oral, q4hr, Pain Moderate (4-6), # 100 tabs, 0 Refill(s) Start Date: 04/25/15 Status: Ordered [place] 5 mg-325 mg oral tablet 1 tabs, Oral, q6hr, as needed for pain, supervising physician Dr Jan Justice DO , # 18 tabs, 0 Refill(s) Start Date: 09/28/15 Stop Date: 09/29/15 Status: Ordered Onglyza 5 mg, Oral, Daily, [...]
--- OUTSIDE RECORDS SUMMARY | 2017-02-21 05:26 | XMS REPORT | Referral Summary ---
Author Author [facility] Organization [facility] Address Unknown Phone Unavailable Care Team Providers Care Home Organizer Name Role Phone Triston Beyer PCP Encounter VC Date(s): 07/22/15 - 07/22/15 [facility] [address] [place], [place] [address] Discharge Diagnosis: Cellulitis of leg, right Discharge Disposition: 01-Home or Self Care Attending [...] 0 Refill(s) Start Date: 04/20/15 Status: Ordered [place] 10 mg-325 mg oral tablet 1-2 tabs, [...]
== END 2017-01-16 20:22 | disposition home or self-care (01) ==
LOC: EDUNIT# 18:30 → ER 18:32
DX: J40 Bronchitis, not specified as acute or chronic (principal); H10.33 Unspecified acute conjunctivitis, bilateral; H60.92 Unspecified otitis externa, left ear; Z79.899 Other long term (current) drug therapy
CPT/HCPCS: 71020; 94640; 99283